=== PATIENT | female | born 1955 | race Hispanic/Latino ===

== ENCOUNTER → 2019-05-11 | Day surgery (SDC) | payer MEDICAID ==
[~2019-05-11] VITALS: Ht 154.9 cm; Wt 49.0 kg
[~2019-05-11] MED LIST: ABAL1.56 SQ; ABAT125S SQ; ATOR20TA65 PO; CHOL50004 PO; FAMO20TA8 PO; MECL-111 PO; PROPOFOL 10 MG/ML 20ML VIAL IV ONE; SODIUM CHLORIDE 0.9% 1000ML 1,000 ML IV ONE; TIOT4MIS3 IH
[2019-05-11 08:45] VITALS: BP 119/70
[2019-05-11 10:10] VITALS: BP 95/57
[2019-05-11 10:15] VITALS: BP 94/65
[2019-05-11 10:20] VITALS: BP 95/66
[2019-05-11 10:30] VITALS: BP 102/68
[2019-05-11 10:35] VITALS: BP 110/68
== END ==
LOC: DAH 08:05
PROVIDERS: ATTEND Internal Medicine
DX: R19.5 Other fecal abnormalities (principal); K64.1 Second degree hemorrhoids; R12 Heartburn; F41.9 Anxiety disorder, unspecified; J43.9 Emphysema, unspecified; E78.5 Hyperlipidemia, unspecified; M81.0 Age-related osteoporosis without current pathological fracture; M19.90 Unspecified osteoarthritis, unspecified site; Z80.8 Family history of malignant neoplasm of other organs or systems; Z88.6 Allergy status to analgesic agent
CPT/HCPCS: 45378; A4215; A4221; A4222; A4223; A4606; A4615; A4663; J2704 ×2; J7030

== ENCOUNTER 2019-06-08 08:50 | Day surgery (SDC) | payer MEDICAID ==
[~2019-06-08] VITALS: Ht 154.9 cm; Wt 49.9 kg
[~2019-06-08 08:50] MED LIST changes: +OLOP2.5D5 OU; -PROPOFOL 10 MG/ML 20ML VIAL IV ONE
[2019-06-08 09:15] VITALS: BP 114/68
[2019-06-08] MEDS ORDERED: HYDR10SY17 PO (09:42)
[2019-06-08] MEDS ORDERED: PROPOFOL 10 MG/ML 20ML VIAL IV ONE ×2 (11:00)
[2019-06-08 11:11] VITALS: BP 97/68
[2019-06-08 11:16] VITALS: BP 103/68
[2019-06-08 11:21] VITALS: BP 110/68
[2019-06-08 11:26] VITALS: BP 122/68
[2019-06-08 11:31] VITALS: BP 120/68
--- NOTE | 2019-06-08 11:55 | NUR ---
dc pt dc home via [place], no distress noted pt denied any pain or discomforts. pt accompanied by sister
== END 2019-06-08 11:55 | disposition home or self-care (01) ==
LOC: DAH 08:50 → ENDO 08:50
PROVIDERS: ATTEND Internal Medicine Gastroenterology
DX: R13.10 Dysphagia, unspecified (principal); K29.70 Gastritis, unspecified, without bleeding; B96.81 Helicobacter pylori [H. pylori] as the cause of diseases classified elsewhere; K22.8 Other specified diseases of esophagus; J43.9 Emphysema, unspecified; F41.9 Anxiety disorder, unspecified; K64.1 Second degree hemorrhoids; K59.00 Constipation, unspecified; E78.5 Hyperlipidemia, unspecified; M81.0 Age-related osteoporosis without current pathological fracture; M19.90 Unspecified osteoarthritis, unspecified site; Z79.899 Other long term (current) drug therapy
CPT/HCPCS: 43239; 88305; A4215; A4221; A4222; A4223; A4606; A4615; A4663; J2704; J7030